=== PATIENT | male | born 2005 | race Two or more races ===

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

== ENCOUNTER 2025-01-04 11:10 | Outpatient (REF) | payer MEDICAID, SELFPAY ==
--- OUTSIDE RECORDS SUMMARY | 2024-02-12 06:30 | XMS_ITS | Continuity of Care Document ---
Author Organization Hongnida Castaneda Shawn [facility] Address [address] [place] [address] Phone Care Team Providers Care Partner Name Role Phone Phan OD, Sharon Unavailable Unavailable Allergies, Adverse Reactions, Alerts Substance Reaction Status Criticality No Known Allergies Active No Inform ation Procedures Procedure Date REFRACTION EYE EXAM & TREATMENT PREV VISIT, EST, AGE 18-39 NON BILLABLE MEDICATION NON BILLABLE MEDICATION OFFICE/OUTPATIENT VISIT, EST FITTING OF SPECTACLES Lens polycarb or equal Optical Ordering Glasses Only 3 REFRACTION EYE EXAM, NEW PATIENT OFFICE/OUTPATIENT VISIT, EST OFFICE/OUTPATIENT VISIT, EST Antigen Detect By Immunoassay Tech COVID -19 DEVELOPMENTAL TEST, GALICIA OFFICE/OUTPATIENT VISIT, NEW Advance Directives Directive Yes / No Effective Date File Name No Information Encounters Encounter Description Practice Location Reason(s) For Visit Diagnoses Date Provider Providers Copied on Encounter Everton Castaneda [facility], [address] [place] [address] 2,[address], [place], [place], [id number], [place] tel:[phone] [place] [address] Optometry blurry vision (chief complaint) Latent hyperopia of both eyes Oct-2 4 Emilie Herrera. [address] [place], [place], [id number], [place]. tel:[phone] PREV VISIT, EST, AGE 18-39 [facility], [address], [place], [place], [id number], [place] tel:[phone] [facility] [place] Well child (chief complaint) Encounter for routine history and physical examination 4 Darell Reeder. [address] [place], [place], [id number], [place]. tel:[phone] OFFICE/OUTPA TIENT VISIT, EST [facility], [address], [place], [place], [id number], [place] tel:[phone] [facility] [place] swollen fingers. (chief complaint) Acute urticaria 4 No Information [facility], [address], [place], [place], [id number], [place] tel:[phone] [place] [address] Optical No Information Nov-0 3 Kelsea Tolentino. [address] [place], [place], [id number], [place]. tel:[phone] [facility], [address], [place], [place], [id number], [place] tel:[phone] [place] 605 Optical No Information Oct-2 3 Asselta Cofield. [address] [place], [place], [id number], [place]. tel:[phone] [facility], [address], [place], [id number], [place] tel:[phone] 605 Optometry routine exam (chief complaint) blurry vision (chief complaint) Regular astigmatism of both eyesBlepharit is of upper eyelids of both eyes, unspecified type Oct-2 3 Jaswant Dickerson. [address] [place], [place], [id number], [place]. tel:[phone] OFFICE/OUTPA TIENT VISIT, [facility] Everton Castaneda [facility], [address], [place], [place], [id number], [place] tel:[phone] [facility] [place] headache (chief complaint) Frontal headacheBMI pediatric, 5th percentile to less than 85% for ageStomach ache 1 Abdelrahman Aguirre. [address] [place], [place], [id number], [place]. tel:[phone] OFFICE/OUTPA TIENT VISIT, [facility] Everton Castaneda [facility], [address], [place], [place], [id number], [place] tel:[phone] [facility] [place] Nasal congestion with rhinorrheaGen eral counseling and advice on contraceptive management 1 Abdelrahman Aguirre. [address] [place], [place], [id number], [place]. tel:[phone] OFFICE/OUTPA TIENT VISIT, [facility] Everton [facility], [address], [place], [place], [id number], [place] tel:[phone] [facility] [place] cold symptoms (chief complaint) Suspected COVID-19 virus infectionNasa l congestion with rhinorrheaOth er specified disorders of nose and nasal sinusesBMI pediatric, 5th percentile to less than 85% for age 1 Abdelrahman Aguirre. [address] [place], [place], [id number], [place]. tel:[phone] Family History Family Member Type Diagnosis Age At Onset Brother Problem attention deficit hyperactiv ity disorder Mother Problem hypertension Payers Payer name Insurance type Covered alliance party ID Authorportia frost(s) [facility] [id number] Social History Type Description Quantity Date Captured Comments Alcohol Use Details Unknown Caffeine Use Details Unknown Tobacco Use Status No Information Smoking Status No Information Sex Male Sexual Orientation Straight or heterosexual Gender Identity Male Chief Complaint And Reason For Visit From encounter dated '02/12/2024 10:30'. blurry vision (chief complaint). Description: 18 yo M presents for CEE. ARRIAGA 01/2023. Patient reports no current ocular complaints. Feels vision is clear at distance and near. Patient does not wear glasses prescribed at last exam, feels they do not help him significantly. (-) flashes, floaters, double vision Reason For Referral Reason For Referral No Information Plan Of Treatment Date Type Action Status Goal Diabetes Screening. Due on O ct due Goal Influenza vaccine. Due on Oc t due Goal Unhealthy drug use screening . Due on due Goal HPV (1st). Due on due Goal Hematocrit . Due on 024 due Goal Flouride Varnish. Due on Jan due Goal Hearing screen (10-21 yr). D ue on due Goal IAP. Due on due Goal PHQ-9. Due on du e Goal BPRS. Due on due Goal DAST. Due on due Goal CANS. Due on due Goal Document SOGI Information. D ue on due Goal APE. Due on due Goal Fluoride varnish application . Due on due Goal CANS. Due on due Goal BPRS. Due on due Goal DAST. Due on due Goal PHQ-9. Due on du e Goal IAP. Due on due Goal HPV (1st). Due on due Goal Unhealthy drug use screening . Due on due Goal Document SOGI Information. D ue on due Goal Fluoride varnish application . Due on due Goal Diabetes Screening. Due on due Goal APE. Due on due Goal Influenza vaccine. Due on due Goal Hearing screen (10-21 yr). D ue on due Goal Flouride Varnish. Due on Dec due Goal Hematocrit . Due on due Goal BPRS. Due on due Goal PHQ-9. Due on du e Goal IAP. Due on due Goal DAST. Due on due Goal CANS. Due on due Goal Fluoride varnish application . Due on due Goal HPV (1st). Due on due Goal Influenza vaccine. Due on due Goal Hearing screen (10-21 yr). D ue on due Goal Hematocrit . Due on due Goal Vision screen. Due on due Goal Tobacco Usage/Advice to Quit . Due on due Goal Well visit. Due on due Goal Flouride Varnish. Due on Apr due Goal Hearing screen (13-18 yr). D ue on due Goal BPRS. Due on due Goal DAST. Due on due Goal PHQ-9. Due on du e Goal CANS. Due on due Goal IAP. Due on due Goal HPV (1st). Due on due Goal Influenza vaccine. Due on Oc due Goal Fluoride varnish application . Due on due Goal Hearing screen (10-21 yr). D ue on due Goal Hematocrit . Due on 023 due Goal Hearing screen (13-18 yr). D ue on due Goal Tobacco Usage/Advice to Quit . Due on due Goal Well visit. Due on due Goal Vision screen. Due on due Goal Flouride Varnish. Due on Jan due Goal CANS. Due on due Goal IAP. Due on due Goal DAST. Due on due Goal BPRS. Due on due Goal PHQ-9. Due on du e Goal Influenza vaccine. Due on No due Goal Fluoride varnish application . Due on due Goal HPV (1st). Due on due Goal Hematocrit . Due on due Goal Tobacco Usage/Advice to Quit . Due on due Goal Hearing screen (13-18 yr). D ue on due Goal Vision screen. Due on due Goal Well visit. Due on due Goal Flouride Varnish. Due on Feb due Goal Hearing screen (10-21 yr). D ue on due Goal Dietary management education , guidance, and counseling completed Goal IAP. Due on due Goal CANS. Due on due Goal BPRS. Due on due Goal PHQ-9. Due on du e Goal DAST. Due on due Goal HPV (1st). Due on due Goal Fluoride varnish application . Due on due Goal Influenza vaccine. Due on due Goal Vision screen. Due on due Goal Flouride Varnish. Due on Feb due Goal Hearing screen (13-18 yr). D ue on due Goal Well visit. Due on due Goal Tobacco Usage/Advice to Quit . Due on due Goal Hematocrit . Due on due Goal Hearing screen (10-21 yr). D ue on due Goal Flouride Varnish. Due on Jan due Goal Hearing screen (13-18 yr). D ue on due Goal Vision screen. Due on due Goal Well visit. Due on 21 due Goal Tobacco Usage/Advice to Quit . Due on due Goal Hematocrit . Due on 021 due Goal Hearing screen (10-21 yr). D ue on due Goal HPV (). Due on due Goal Fluoride varnish application . Due on due Goal Influenza vaccine. Due on Oc due Goal BPRS. Due on due Goal IAP. Due on due Goal PHQ-9. Due on du e Goal DAST. Due on due Goal CANS. Due on due Goal Dietary management education , guidance, and counseling completed History Of Present Illness Encounter Date Complaint History Of Prese nt Illness blurry vision 18 yo M presents for CEE. ARRIAGA 01/2023. Patient reports no current ocular complaints. Feels vision is clear at distance and near. Patient does not wear glasses prescribed at last exam, feels they do not help him significantly. (-) flashes, floaters, double vision Well child CC: 18 YR CPELan g: EngConcerns and Questions: none PMH: denies (ADHD listed, not on meds)meds: deniesallg: NKDA/NKFAPast hospitalizations: deniesPast surgeries: deniesFHx: mat aunt w/ blindness, MGM passed from breast cancer; no DM or sudden cardiac deathROS: good appetite, F&V, lots of water, cutting back on soda. no concerns w/ sleep, regular BMs no diarrhea/constipationHEADSS assessment:- lives w/mom, 5 brothers. No smokers. - school: [employer], 11th grade. Likes school, loves art. Thinking about college.- after-school activity/hobbies: on football team- social group: good group, no bullying/drama- t/a/d/vaping: denies - tried MJA before but didnt like how it made him feel slow so he stopped -identity: pronouns (he/him), identifies as hetero, has girlfriend, sexually active, uses condoms - mood: good, no concerns HCM:- eye exam -- saw Opt, has glasses but doesnt feel the Rx is right- dentist -- outside clinic- screeners: reviewed, no concern- SOGI: entered- vaccines: need to reconcileROS:Neuro: Denies HAHEENT: Pos glasses Rx, sometimes blurry w/ small letters, no hearing concernCVS: Denies skipped beats, CP, dizziness, presyncope, syncopeResp: Denies cough, trouble breathing, SOB with exertionABD: Denies stomach pain. Reports daily BMs, no bloodGU: Denies dysuria, hematuria, no penile rash or dcSkin: Denies rashes swollen fingers. Here with swoll en fingers and itchy rash that started this morning. Pt notes he felt weak last night with assoc DOS SANTOS. + runny nose. No cough, ST. Had a ST x 4 days a week ago. Denies trouble breathing, vomiting. Denies new exposures to foods, medicines, topicals. Has not tried any treatments.Sick contacts: Friend is sickSH: THC uses, denies nicotine. SA with female partner. routine exam blurry vision >17 yo M Sandeep rai pt comes in for his 1st eye exam. He never worn glasses or CLs before. He stated that at school sometimes he has to squint his left eye to be able to see the white board at the end of the room but his near vision is ok. > Pt also reported that his eyes are usually dry when just wake up from the morning but other than that, no redness, tearing, itching, burning, double vision. > No h/o of ocular trauma or surgeries> Unremarkable medical history and medication> He is doing well in school> His aunt and uncle were born blind and it was a hereditary condition but mom was not aware of what disease it was. headache Onset: 2hours. T he severity of the problem is mild. Pain scale: 3/10. The problem has not changed. The symptoms are constant. Locations affected include bilateral frontal. Headache timing includes daytime. Symptoms are not associated with recent head trauma. Aggravating factors include head position. Symptoms are not aggravated by allergies, bright lights and noise. Relieving factors additional comments: took nothing. Pertinent negatives include dizziness, fever, nausea, neck stiffness or vomiting. Additional information: Notes runny, stuffy nose. Also notes stomach ache after eating a brownie cake for lunch. Hx of allergies but never got medication. cold symptoms Onset: 4 days ag o. The patient describes the cough as non-productive. Context: covid exposure. Symptoms are aggravated by lying down. Relieving factors include took nothing. Associated symptoms include cough, fatigue, nasal congestion and rhinorrhea. Pertinent negatives include chills, epistaxis, fever, hoarseness and sore throat. The patient does not have a history of allergies or asthma. Functional Status Date Functional Assessmen t No Information Instructions Date Instruction Additional Infor mation Impression/Plan Related to Laten t hyperopia of both eyes Impression/Plan Related to Regul ar astigmatism of both eyes Impression/Plan Related to Bleph aritis of upper eyelids of both eyes, unspecified type Dietary management e ducation, guidance, and counseling Related to BMI pediatric, 5th percentile to less than 85% for age Dietary management e ducation, guidance, and counseling Related to BMI pediatric, 5th percentile to less than 85% for age Assessments Type Assessment Date assessment Latent hyperopia of both eyes Oc impression Latent hyperopia of both eyes: H52.03.> BCVA 20/20 OD/OS/OU > patient asymptomatic Patient Care Teams Name Effective Dates (start - stop) Status Members No Information
--- OUTSIDE RECORDS SUMMARY | 2025-01-04 10:15 | XMS_ITS | Encounter Summary ---
Author Organization [employer] Address [address] [facility] [address] [place] [address] Care Team Providers Care Cloth Doubling Machine Operator Name Role Phone Padmini Rose MD Primary Care Provider [phone]- [phone] Reason for Visit * Reason Comments Follow-up Encounter Details Date Type Department Care Team ([facility] Contact Info) Description 01/04/2025 10:15 AM EDT Office Visit [facility] MEDICINE [address] [place] [address] Padmini Rose MD [address] [place] [address] Gender dysphoria (Primary Dx); Hematuria, unspecified type; Other specified health status Social History Tobacco [...] Q2 Not on file 12/21/2023 Comments Unknown Intention Date Recorded No desire to become (finding) 0 01/04/2025 Sex and Gender Information Value Date Recorded Sex Assigned at Male 10/13/2023 10:38 AM EDT Legal Sex Male 1:09 PM EDT Gender Identity Transgender Female 10/27/2023 1: 57 PM EDT Sexual Orientation Don't know 10/13/2023 10 :42 AM EDT documented as of this encounter Last Filed Vital Signs Vital Sign Reading Time Taken Comments Blood Pressure 120/70 01/04/2025 10:45 AM EDT Pulse 61 01/04/2025 10:45 AM EDT Temperature 36.9 C (98.4 F) 01/04/2025 10:45 AM EDT Respiratory Rate 20 01/04/2025 10:45 AM EDT Oxygen Saturation 99% 01/04/2025 10:45 AM EDT Inhaled Oxygen Concentration - - Weight 64.1 kg (141 lb 6.4 oz) 01/04/2025 10:45 AM EDT Height 171.5 cm (5' 7.5 ) 01/04/2025 10:45 AM ED T Body Mass Index 21.82 01/04/2025 10:45 AM EDT documented in this encounter Progress Notes * Padmini Rose MD - 01/04/2025 10:15 AM EDT Sylvia Saab is a 19 y.o. adult trans woman with past medical history of gender dysphoria and anxiety who presents to the office today here for follow-up gender dysphoria and comprehensive annual evaluation. Increased estradiol on 09/07/24 and pt has not gotten her associated labs done. Will re-order labs again today. Pt reports she will get her labs done. She came > 15 min late today. We discussed she did not get her labs done as advised and she needs to get them done to continue treatment. She has some questions about her insurance coverage and I advised her to speak with our insurance navigators. She declines vaccines today. She reports has occasional headaches, no other concerns. Social History Tobacco: denied Drugs: none Alcohol: No Sexuality: Sexually active with male partners. Suicide/Depression: The patient denies any present symptoms of depression or anxiety. Review of Systems Constitutional: Negative for chills, fatigue, fever and unexpected weight change. Respiratory: Negative for cough and shortness of breath. Cardiovascular: Negative for chest pain. Gastrointestinal: Negative for abdominal pain. Genitourinary: Negative for difficulty urinating. Musculoskeletal: Negative for back pain. Neurological: Negative for dizziness. Current Medications[1] Allergies[2] Medical History[3] Surgical History[4] Family History[5] Objective Visit Vitals BP 120/70 (BP Location: Left arm, Patient Position: Sitting, BP Cuff Size: Adult) Pulse 61 Temp 98.4 ??F (36.9 ??C) (Oral) Resp 20 Ht 5' 7.5 (1.715 m) Wt 141 lb 6.4 oz (64.1 kg) SpO2 99% BMI 21.82 kg/m?? Smoking Status Never BSA 1.75 m?? Physical Exam Constitutional: Appearance: Normal appearance. HENT: Right Ear: Tympanic membrane normal. Left Ear: Tympanic membrane normal. Nose: Nose normal. Mouth/Throat: Pharynx: Oropharynx is clear. Eyes: Extraocular Movements: Extraocular movements intact. Pupils: Pupils are equal, round, and reactive to light. Cardiovascular: Rate and Rhythm: Normal rate and regular rhythm. Heart sounds: Normal heart sounds. Pulmonary: Effort: Pulmonary effort is normal. Breath sounds: Normal breath sounds. No wheezing. Abdominal: General: Abdomen is flat. Palpations: Abdomen is soft. Tenderness: There is no abdominal tenderness. Musculoskeletal: General: Normal range of motion. Skin: General: Skin is warm and dry. Neurological: General: No focal deficit present. Mental Status: She is alert. Psychiatric: Mood and Affect: Mood normal. Behavior: Behavior normal. 19 y.o. adult annual evaluation. Assessment & Plan Gender dysphoria Reviewed risks and benefits of [...] so referred [facility]. [phone]. This will be to schedule an initial [...] will recheck labs in 6 weeks 09/07/24 -has not gotten labs done, re-ordered and encouraged to get them done 01/04/25 Hematuria, unspecified type Lab Results Component Value Date COLORURINE Yellow 09/07/2024 APPURINE Clear 09/07/2024 PH 7.0 09/07/2024 GLUCURUA Negative 09/07/2024 URBLOOD Large (3+) (A) 09/07/2024 SGUR <=1.005 09/07/2024 URPROTEIN Negative 09/07/2024 URKETONES Negative 09/07/2024 URNITRITE Negative 09/07/2024 LEUKESTUR Negative 09/07/2024 RBCURINE >20 (A) 09/07/2024 UWBC 0-5 09/07/2024 USQEPI 0-2 09/07/2024 UBACT None Seen 09/07/2024 HYALINECASTS 0-2 09/07/2024 -Normal renal ultrasound 10/07/24 Other specified health status -next comprehensive annual evaluation due after 01/04/26 -eye care none -dental home is encouraged -billy care proxy given and filed 05/25/24 Annual Evaluation -Normal growth and development. -Anticipatory guidance discussed. -Preventative care / harm reduction discussed. Follow up in about 2 months (around 03/06/2025) for televisit or in-person. I, Arabella Rubio, am serving as a scribe to document services personally performed by Dr. Diaz, based on the patient's response to questions by provider and providers statements to me. [1] Current Outpatient Medications: estradiol (Estrace) 2 MG tablet, Take 2 tabs po daily, Disp: 180 tablet, Rfl: 3 spironolactone (Aldactone) 50 MG tablet, Take 1 tablet (50 mg) by mouth Once per day., Disp: 90 tablet, Rfl: 3 [2] No Known Allergies [3] Past Medical History: Diagnosis Date Gender dysphoria 10/27/2023 Reviewed risks and benefits of feminizing hormone therapy. Informed consent given to patient to review. Discussed use of estrogen and/or anti-androgens, reversible vs irreversible side effects. Discussed impact on fertility as well as need for contraception if with a partner who is capable of getting . Reviewed need for baseline labs and regular monitoring. Reviewed expected time line [4] History reviewed. No pertinent surgical history. [5] Family History Problem Relation Name Age of Onset Diabetes Maternal Grandmother documented in this encounter Miscellaneous Notes * Assessment & Plan Note - Padmini Rose MD - 01/04/2025 10:15 AM EDT Associated Problem(s): Gender dysphoria Reviewed risks and benefits [...] so referred [facility]. [phone]. This will be to schedule an initial [...] will recheck labs in 6 weeks 09/07/24 -has not gotten labs done, re-ordered and encouraged to get them done 01/04/25 * Assessment & Plan Note - Padmini Rose MD - 01/04/2025 10:15 AM EDT Associated Problem(s): Hematuria Lab Results Component Value Date COLORURINE Yellow 09/07/2024 APPURINE Clear 09/07/2024 PH 7.0 09/07/2024 GLUCURUA Negative 09/07/2024 URBLOOD Large (3+) (A) 09/07/2024 SGUR <=1.005 09/07/2024 URPROTEIN Negative 09/07/2024 URKETONES Negative 09/07/2024 URNITRITE Negative 09/07/2024 LEUKESTUR Negative 09/07/2024 RBCURINE >20 (A) 09/07/2024 UWBC 0-5 09/07/2024 USQEPI 0-2 09/07/2024 UBACT None Seen 09/07/2024 HYALINECASTS 0-2 09/07/2024 -Normal renal ultrasound 10/07/24 * Assessment & Plan Note - Padmini Rose MD - 01/04/2025 10:15 AM EDT Associated Problem(s): Other specified health status -next comprehensive annual evaluation due after 01/04/26 -eye care none -dental home is encouraged -billy care proxy given and filed 05/25/24 documented in this encounter Plan of Treatment Upcoming Encounters Date Type Department Care Team (Late st Contact Info) Description 03/08/2025 9:30 AM EST Office Visit [facility] MED[facility]INE [address] [place] [address] Padmini Rose MD [address] [place] [address] Scheduled Orders Name Type Priority Associated Diagnoses Orde r Schedule Testosterone, Total, males (Adult), IA Lab Routine Gender dysphoria Expected: 01/04/2025, Expires: 01/04/2026 Estradiol Lab Routine Gender dysphoria Expected: 01/04/2025, Expires: 01/04/2026 documented as of this encounter Procedures Procedure Name Priority Date/Time Associated Diagnosis Comments HEPATIC FUNCTION PANEL Routine 01/04/2025 11:42 AM EDT Gender dysphoria BASIC METABOLIC PANEL Routine 01/04/2025 11:42 AM EDT Gender dysphoria documented in this encounter Results * (ABNORMAL) Basic Metabolic Panel (01/04/2025 11:42 AM EDT) Sodium 142 135 - 145 mmol/L [facility] Potassium 4.7 3.3 - 5.1 mmol/L [facility] Chloride 108 96 - 108 mmol/L [facility] Carbon Dioxide 28 22 - 29 mmol/L [facility] Anion Gap 11(L) 12 - 20 [facility] Urea Nitrogen (BUN) 12 9 - 16 mg/dL [facility] Creatinine, Serum 0.87 0.5 - 1.4 mg/dL [facility] Estimated Glomerular Filt Rate >60 [facility] Comment:Chronic Kidney Disea se: Estimated GFR < 60 mL/min/[id number] Kidney Disease: Estimated GFR < 15 mL/min/1.73m2 Glucose 88 60 - 115 mg/dL [facility] Calcium 9.9 8.4 - 10.2 mg/dL [facility] Blood Venous blood specimen / Unknown 01/04/2025 11:42 AM EDT 01/04/2025 1:16 PM EDT Padmini Rose MD LAB BLOOD ORDERABLES Final Result Performing Organization Address City/State/[facility] Co de Phone Number [facility] [address] [place] [phone] * Hepatic Function Panel (01/04/2025 11:42 AM EDT) Bilirubin, Total 0.8 0.0 - 1.0 mg/dL [facility] Bilirubin, Direct 0.3 0.0 - 0.5 mg/dL [facility] Aspartate Amino Transferase 26 5 - 37 U/L [facility] Alanine Aminotransferase 19 0 - 40 U/L [facility] Total Protein 7.6 6.5 - 8.0 g/dL [facility] Albumin Level 5.0 3.5 - 5.0 g/dL [facility] Alkaline Phosphatase 113 39 - 117 U/L [facility] Blood Venous blood specimen / Unknown 01/04/2025 11:42 AM EDT 01/04/2025 1:16 PM EDT Padmini Rose MD LAB BLOOD ORDERABLES Final Result [facility] [address] [place] [phone] documented in this encounter Visit Diagnoses Diagnosis Gender dysphoria- Primary Hematuria, unspecified type Other specified health status documented in this encounter Additional Health Concerns Assessment Noted Time PHQ-9 Depression Total Score: 1 07/06/19 25 10:01 AM EDT documented as of this encounter Care Teams Cloth Doubling Machine Operator Relationship Specialty Start Date End Date Padmini Rose MD [address] [place] [phone] PCP - General Family Medicine 10/27/23 documented as of this encounter
[2025-01-04 13:47] LABS: Alanine Aminotransferase 19 U/L (0-40); Albumin Level 5.0 g/dL (3.5-5.0); Alkaline Phosphatase 113 U/L (39-117); Anion Gap 11 (12-20); Aspartate Amino Transferase 26 U/L (5-37); Blood Urea Nitrogen 12 mg/dL (9-16); Calcium 9.9 mg/dL (8.4-10.2); Carbon Dioxide 28 mmol/L (22-29); Chloride 108 mmol/L (96-108); Estimated Glomerular Filt Rate > 60; Potassium 4.7 mmol/L (3.3-5.1); Sodium 142 mmol/L (135-145); Total Protein 7.6 g/dL (6.5-8.0)
--- OUTSIDE RECORDS SUMMARY | 2025-01-04 14:23 | XMS_ITS | Encounter Summary ---
Author Organization [employer] Address [address] [facility] [address] [place] [address] Care Team Providers Care Creative Producer Name Role Phone Padmini Rose MD Primary Care Provider [phone]- [phone] Reason for Visit * Reason Onset Date Comments CHART PREP 01/03/2025 Encounter Details Date Type Department Care Team ([facility] st Contact Info) Description 01/03/2025 Telephone [facility] MED[facility]INE [address] [place] [address] Padmini Rose MD [address] [place] [address] CHART PREP Social History Tobacco Use Types Packs/Day Years [...] encounter Miscellaneous Notes * Telephone Encounter - Steve Howard [place] - 01/03/2025 6:28 PM EDT Chart Prep Labs: not done from 09/07/24 Images: done Renal 10/07/24 Referrals: not applicable Vaccines due: Covid, Flu, Hep B, HPV, and DTAP Screenings: LMP Overdue care gaps: Oral health screening and Disability screen documented in this encounter Plan of Treatment Upcoming Encounters Date Type Department Care Team (Late st Contact Info) Description 03/08/2025 9:30 AM EST Office Visit [facility] MEDICINE [address] [place] [address] Padmini Rose MD [address] [place] [address] documented as of this encounter Visit Diagnoses Not on filedocumented in this encounter Additional Health Concerns Assessment Noted Time PHQ-9 Depression Total Score: 1 07/06/19 10:01 AM EDT documented as of this encounter Care Teams Creative Producer Relationship Specialty Start Date End Date Padmini Rose MD [address] [place] [phone] PCP - General Family Medicine 10/27/23 documented as of this encounter
--- OUTSIDE RECORDS SUMMARY | 2025-01-04 14:23 | XMS_ITS | Clinical Summary ---
Author Organization [employer] Address [address] [place] [address] Care Team Providers Care Oil Heater Installer Name Role Phone Padmini Rose MD Primary Care Provider [phone]- [phone] Allergies No known active allergies Medications * This document contains information received from the source organization and may not represent a complete record from that organization. spironolactone (Aldactone) 50 MG tabletIndication s:Gender dysphoria Take 1 tablet (50 mg) by mouth Once per day. 90 tablet 3 08/09/2024 Active estradiol (Estrace) 2 MG tabletIndication s:Gender dysphoria Take 2 tabs po daily 180 tablet 3 09/07/2024 Active Active Problems Problem Noted Date Diagnosed Date Hematuria 10/10/2024 Overview (01/04/2025): Lab Results Component Value Date COLORURINE Yellow 09/07/2024 APPURINE Clear 09/07/2024 PH 7.0 09/07/2024 GLUCURUA Negative 09/07/2024 URBLOOD Large (3+) (A) 09/07/2024 SGUR <=1.005 09/07/2024 URPROTEIN Negative 09/07/2024 URKETONES Negative 09/07/2024 URNITRITE Negative 09/07/2024 LEUKESTUR Negative 09/07/2024 RBCURINE >20 (A) 09/07/2024 UWBC 0-5 09/07/2024 USQEPI 0-2 09/07/2024 UBACT None Seen 09/07/2024 HYALINECASTS 0-2 09/07/2024 -Normal renal ultrasound 10/07/24 Assessment & Plan (01/04/2025 11:07 AM EDT): Lab Results Component Value Date COLORURINE Yellow 09/07/2024 APPURINE Clear 09/07/2024 PH 7.0 09/07/2024 GLUCURUA Negative 09/07/2024 URBLOOD Large (3+) (A) 09/07/2024 SGUR <=1.005 09/07/2024 URPROTEIN Negative 09/07/2024 URKETONES Negative 09/07/2024 URNITRITE Negative 09/07/2024 LEUKESTUR Negative 09/07/2024 RBCURINE >20 (A) 09/07/2024 UWBC 0-5 09/07/2024 USQEPI 0-2 09/07/2024 UBACT None Seen 09/07/2024 HYALINECASTS 0-2 09/07/2024 -Normal renal ultrasound 10/07/24 Anxiety 11/12/2023 Assessment & Plan (11/18/2023 9:37 [...] of the state. Gender dysphoria 10/27/2023 Overview (01/04/2025): Reviewed risks and benefits of feminizing hormone [...] so referred to the [facility] at [facility]. [phone]. This will be to schedule an initial [...] and encouraged to get them done 01/04/25 Assessment & Plan (01/04/2025 11:07 AM EDT): Reviewed risks and benefits of [...] so referred to the [facility] at [facility]. [phone]. This will be to schedule an initial [...] and encouraged to get them done 01/04/25 Assessment & Plan (09/07/2024 4:11 PM EDT): [...] so referred to the [facility] at [facility]. [phone]. This will be to schedule an initial [...] needed Other specified health status 10/27/2023 Overview (01/04/2025): -next comprehensive annual evaluation due after 01/04/26 -eye care none -dental home is encouraged -billy care proxy given and filed 05/25/24 Assessment & Plan (01/04/2025 11:07 AM EDT): -next comprehensive annual evaluation due after 01/04/26 [...] reports her grandpa raised her. He in [place] a month ago. Since then Katiana has experienced grief symptoms and inability to enjoy things she used to. Katiana just relocated from [place] and is currently living with a roommate. Reports having positive social and family support. Pt was engaged with active, reflective listening and validation of emotions. Reviewed and assessed for risk, current stressors and protective factors. Katiana will see her PCP in 02/21. clinician will provide additional support during next medical appointment. Encounters Date Type Department Care Team Description 01/04/2025 10:15 AM EDT Office Visit [facility] [address] [place] [phone] Padmini Rose MD Gender dysphoria (Primary Dx); Hematuria, unspecified type; Other specified health status 01/04/2025 Travel 01/03/2025 Telephone [facility] [address] [place] [address] Padmini Rose MD CHART PREP 10/05/2024 Telephone [facility] [address] [place] [address] Padmini Rose MD 10/04/2024 Telephone [facility] [address] [place], [place] [phone] Jessenia Vegas MA chart prep from Last 3 Months Immunizations Immunization Administration [...] Mass Index 21.82 01/04/2025 10:45 AM EDT Plan of Treatment Upcoming Encounters Date Type Department Care Team (Late st Contact Info) Description 03/08/2025 9:30 AM EST Office Visit [facility] [address] [place] [phone] Padmini Rose MD [address] [place] [phone] Health Maintenance Due Date Last Done Comments Fluoride Varnish 05/08/2006 HPV Vaccines (1 - 3-dose series) 2020 Meningococcal B Vaccine (1 of 2 - Standard) 2021 Hepatitis B Vaccines (2 of 3 - 3-dose series) 08/12/2024 07/15/2024 DTaP/Tdap/Td Vaccines (1 - Tdap) 2024 COVID-19 Vaccine (1 - season) 2024 Influenza Vaccine (#1) 2024 Hepatitis A Vaccines (2 of 2 - 2-dose series) 01/15/2025 07/15/2024 SDOH Screening 05/11/2025 05/11/2024 Alcohol/Substance Use Screening 05/25/2025 05/25/2024 Depression Screening 07/05/2025 07/05/2024, 07/06/19 25 Chlamydia and Gonorrhea Screening 09/08/2025 09/08/2024, 05/25/2024, 05/25/2024, Additional history exists Disability Screening 01/04/2026 01/04/2025 Family Planning (PISQ) 01/04/2026 01/04/2025 Tobacco Screening 01/04/2026 01/04/2025 Zoster Vaccines (1 of 2) 09/06/2055 RSV [...] Years) and At-Risk Patients (6 to 49) Years Aged Out No longer eligible based on patient's age to complete this topic RSV under 20 months Aged Out No longe r eligible based on patient's age to complete this topic Rotavirus Vaccines Aged Out No longer eligible based on patient's age to complete this topic Varicella Vaccines Discontinued Procedures Procedure Name Priority Date/Time Associated Diagnosis Comments BASIC METABOLIC PANEL Routine 01/04/2025 11:42 AM EDT Gender dysphoria HEPATIC FUNCTION PANEL Routine 01/04/2025 11:42 AM EDT Gender dysphoria US RENAL BI Routine 10/07/2024 2:43 PM EDT Hematuria, unspecified type CHLAMYDIA/N. GONORRHOEAE RNA, TMA, UROGENITAL Routine 09/08/2024 4:11 PM EDT UTI symptoms HEPATITIS C AB W/REFL TO HCV RNA, QN, PCR Routine 05/25/2024 4:38 PM EST Routine screening for STI (sexually transmitted infection) HIV 1/2 ANTIGEN/ANTIBODY, FOURTH GENERATION W/RFL Routine 05/25/2024 4:38 PM EST Routine screening for STI (sexually transmitted infection) from Last 3 Months or Most Recently Relevant to Health Maintenance Results * Hepatic Function Panel (01/04/2025 11:42 AM EDT) Bilirubin, Total 0.8 0.0 - 1.0 mg/dL [facility] Bilirubin, Direct 0.3 0.0 - 0.5 mg/dL [facility] Aspartate Amino Transferase 26 5 - 37 U/L [facility] Alanine Aminotransferase 19 0 - 40 U/L [facility] Total Protein 7.6 6.5 - 8.0 g/dL [facility] Albumin Level 5.0 3.5 - 5.0 g/dL [facility] Alkaline Phosphatase 113 39 - 117 U/L [facility] Blood Venous blood specimen / Unknown 01/04/2025 11:42 AM EDT 01/04/2025 1:16 PM EDT Padmini Rose MD LAB BLOOD ORDERABLES Final Result [facility] [address] [place] [phone] * (ABNORMAL) Basic Metabolic Panel (01/04/2025 11:42 AM EDT) Sodium 142 135 - 145 mmol/L [facility] Potassium 4.7 3.3 - 5.1 mmol/L [facility] Chloride 108 96 - 108 mmol/L [facility] Carbon Dioxide 28 22 - 29 mmol/L [facility] Anion Gap 11(L) 12 - 20 [facility] Urea Nitrogen (BUN) 12 9 - 16 mg/dL [facility] Creatinine, Serum 0.87 0.5 - 1.4 mg/dL [facility] Estimated Glomerular Filt Rate >60 [facility] Comment:Chronic Kidney Disea se: Estimated GFR < 60 mL/min/1.35p2Oblary Kidney Disease: Estimated GFR < 15 mL/min/1.73m2 Glucose 88 60 - 115 mg/dL [facility] Calcium 9.9 8.4 - 10.2 mg/dL [facility] Blood Venous blood specimen / Unknown 01/04/2025 11:42 AM EDT 01/04/2025 1:16 PM EDT us Padmini Rose MD LAB BLOOD ORDERABLES Final Result Performing Organization Address City/State/[facility] Co de Phone Number [facility] [address] [place] [phone] * US RENAL BI (10/07/2024 2:43 PM EDT) Anatomical Region Laterality Modality Abdomen Ultrasound 10/07/2024 2:43 PM EDT Narrative 10/07/2024 3:14 PM EDT [address] [address] Ultrasound Report Signed Patient: Dany Franklin MR#: [id number] : 2005 Acct:[id number] Age/Sex: 19 / M ADM Date: 10/07/24 Loc: HO.US Attending Dr: Padmini Rose MD Ordering Physician: Padmini Rose MD Date of Service: 10/07/24 Procedure(s): US renal BI Accession Number(s): [id number] cc: Padmini Rose MD EXAMINATION: Ultrasound renal bilaterally. CLINICAL INFORMATION: Hematuria. COMPARISON: No priors. TECHNIQUE: Real-time ultrasound kidneys using grayscale technique. FINDINGS: Right kidney: 10 x 4 x 5 cm. Normal echotexture. Normal renal cortical thickness. No hydronephrosis. No gross solid or cystic lesion detected. Left kidney: 10 x 5 x 4 cm. Normal echotexture. Normal renal cortical thickness. No hydronephrosis. No solid or cystic lesion detected. US/US renal BI IMPRESSION: Normal renal ultrasound. Electronically signed by: Eloy Teague MD 10/07/2024 03:11 PM EDT RP Dictated By: Eloy Zuniga MD Signed By: <Electronically signed by Eloy Bartlett MD in OV> 10/07/24 1511 DD/ 1443 TD/TT: 10/07/24 1447 Building Components Designer: Procedure Note Donotuseinterpreter, Image - 10/07/2024 [place] [id number] Ultrasound Report Signed Patient: Dany Franklin AMR#: [id number] : 2005cct:[id number] Age/Sex: Date: 10/07/24 Loc: .US Attending Dr: Padmini Rose MD Ordering Physician: Padmini Rose MD Date of Service: 10/07/24 Procedure(s): US renal BI Accession Number(s): [id number] cc: Padmini Rose MD EXAMINATION: Ultrasound renal bilaterally. CLINICAL INFORMATION: Hematuria. COMPARISON: No priors. TECHNIQUE: Real-time ultrasound kidneys using grayscale technique. FINDINGS: Right kidney: 10 x 4 x 5 cm. Normal echotexture. Normal renal cortical thickness. No hydronephrosis. No gross solid or cystic lesion detected. Left kidney: 10 x 5 x 4 cm. Normal echotexture. Normal renal cortical thickness. No hydronephrosis. No solid or cystic lesion detected. US/US renal BI IMPRESSION: Normal renal ultrasound. Electronically signed by: Eloy Teague MD 10/07/2024 03:11 PM EDT RP Dictated By: Eloy Zuniga MD Signed By: <Electronically signed by Eloy Bartlett MDin OV> 10/07/24 1511 DD/ 1443 TD/TT: 10/07/24 1447 Building Components Designer: Padmini Rose MD [facility] US PROCEDURES Final Re sult * Chlamydia/N. Gonorrhoeae RNA, TMA, Urogenitial (09/08/2024 4:11 PM EDT) CT PCR NOT DETECTED Not Detect. [facility] Comment:A not detected test result [...] psychologicalconsequences. NG PCR NOT DETECTED Not Detect. [facility] Comment:A not detected test result [...] lead to adverse medical, social or psychologicalconsequences. Urine (Urine, Random) 09/08/2024 4:11 PM EDT 09/08/2024 4:11 PM EDT Narrative [facility] - 09/08/2024 1:33 PM EDT Urine us Padmini Rose MD LAB MICROBIOLOGY - GENERAL ORDERABLES Final Result Performing Organization Address [facility] Co de Phone Number [facility] [address] [place] [phone] * Hepatitis C Antibody with Reflex to HCV, RNA, Quantitative, Real-Time PCR (05/25/2024 4:38 PM EST) Hepatitis C Antibody Nonreactive Nonreactive [facility] Comment:Antibodies to HCV no t detected; does not exclude early acuteHCV infection. Blood Venous blood specimen / Unknown 05/25/2024 4:38 PM EST 05/25/2024 6:27 PM EST Result [facility] Padmini Rose MD LAB BLOOD ORDERABLES Final Result Performing Organization Address [facility] de Phone Number [facility] [address] [place] [phone] * HIV-1/2 Antigen and Antibodies, Fourth Generation, with Reflexes (05/25/2024 4:38 PM EST) HIV AB/AG Nonreactive Nonreactive [facility] Comment:HIV-1 p24 Ag and/or HIV-1/HIV-2 Ab not detected.A test result that is nonreactive does not exclude thepossibility of exposure to or infection with HIV-1 and/orHIV-2. Nonreactive results in this assay for individualswith prior exposure to HIV-1 and/or HIV-2 may be due toantigen and antibody levels that are below the limit ofdetection of this assay.The [employer] HIV Ag/Ab Combo assay result andsupplemental assay results should be interpreted inconjunction with the patient's clinical presentation,history and other laboratory results. If the results areinconsistent with clinical evidence, additional testing issuggested to confirm the result. Blood Venous blood specimen / Unknown 05/25/2024 4:38 PM EST 05/25/2024 6:27 PM EST Result [facility] Padmini Rose MD LAB BLOOD ORDERABLES Final Result [facility] [address] [place] [phone] from Last 3 Months or Most Recently Relevant to Health Maintenance Insurance [facility] C3 Advance Directives Documents on File Type Date Recorded Patient Entry Level Assistant Manager Expl anation Advance Directives and Living Will 05/26/2024 10:22 AM Health Care Proxy Care Teams Oil Heater Installer Relationship Specialty Start Date End Date Padmini Rose MD [address] [place] [phone] PCP - General Family Medicine 10/27/23
--- OUTSIDE RECORDS SUMMARY | 2025-01-04 14:23 | XMS_ITS | Encounter Summary ---
Author Organization [employer] Address [address] [place] [address] Care Team Providers Care Junior Business Analyst Name Role Phone Padmini Rose MD Primary Care Provider [phone]- [phone] Encounter Details Date Type Department Care Team (Latest Contact Info) Description 01/04/2025 Travel Social History Tobacco Use Types Packs/Day [...] Description 03/08/2025 9:30 AM EST Office Visit [facility] [address] [place] [phone] Padmini Rose MD [address] [place] [address] documented as of this encounter Visit Diagnoses Not on filedocumented in this encounter Additional Health Concerns Assessment Noted Time PHQ-9 Depression Total Score: 1 07/06/19 25 10:01 AM EDT documented as of this encounter Care Teams Junior Business Analyst Relationship Specialty Start Date End Date Padmini Rose MD [address] [place] [address] PCP - General Family Medicine 10/27/23 documented as of this encounter
--- OUTSIDE RECORDS SUMMARY | 2025-01-04 14:23 | XMS_ITS | Encounter Summary ---
Author Organization [employer] Address [address] [place] [address] Care Team Providers Care Project Control Manager Name Role Phone Padmini Rose MD Primary Care Provider [phone]- [phone] Encounter Details Date Type Department Care Team ([facility] st Contact Info) Description 08/09/2024 Orders Only [facility] [address] [place] [address] Padmini Rose MD [address] [place] [address] Gender dysphoria Social History Tobacco Use Types [...] Description 03/08/2025 9:30 AM EST Office Visit [facility] [address] [place] [address] Padmini Rose MD [address] [place] [address] documented as of this encounter Visit Diagnoses Diagnosis Gender dysphoria documented in this encounter Additional Health Concerns Assessment Noted Time PHQ-9 Depression Total Score: 1 07/06/19 25 10:01 AM EDT documented as of this encounter Care Teams Project Control Manager Relationship Specialty Start Date End Date Padmini Rose MD [address] [place] [address] PCP - General Family Medicine 10/27/23 documented as of this encounter
--- OUTSIDE RECORDS SUMMARY | 2025-01-04 14:24 | XMS_ITS | Clinical Summary ---
Author Organization [facility] Address [address] [place] [address] [place] [phone] Phone Care Team Providers Care Casting Molder Name Role Phone Padmini Rose MD Primary Care Provi rad Social History Tobacco Use Types Packs/Day Years Used Date Smoking Tobacco: Never Assessed Education Answer Date Recorded Are you interested in more education? Not on raúl e 09/06/2024 Are you concerned about learning? Not on file 09/06/2024 No 09/06/2024 No 09/06/2024 Digital Access Answer Date Recorded No 09/06/2024 No 09/06/2024 Reliable internet access at home? Not on file 09/06/2024 Device with a working camera? Not on file Sex and Gender Information Value Date Recorded Sex Assigned at Male 09/06/2024 3:40 PM EDT Legal Sex Female 3:45 PM EDT Gender Identity Female 09/06/2024 3:40 PM EDT Sexual Orientation Not on file Plan of Treatment Upcoming Encounters Date Type Department Care Team (Late st Contact Info) Description 03/03/2025 9:00 AM EST Office Visit [facility] [address] [place] [phone] Yazan Killian MD [address] [place] [phone] Health Maintenance Due Date Last Done Comments MMR VACCINES (1 of 1 - Stand xochilt series) 2006 BMI ASSESSMENT 2008 DEVELOPMENTAL/BEHAVIORAL SCR EENING (PHQ, PSC, or SWYC) 2008 COMBINED DTaP,Tdap,Td (1 - Tdap) 2012 DEPRESSION SCREENING 2017 SMOKING Hx and SMOKELESS TOB ACCO SCREENING 2018 VARICELLA VACCINES (1 of 2 - 13+ 2-dose series) 2018 HPV VACCINES (1 - 3-dose series) 2020 CHLAMYDIA SCREENING 2021 MENINGOCOCCAL VACCINES (B) ( 1 of 2 - Standard) 2021 ADOLESCENT UNIVERSAL LIPID SCREENING 2022 HEPATITIS C SCREENING 09/06/2023 HIV ONE-TIME SCREENING (18-6 5 YEARS) 09/06/2023 HEPATITIS B VACCINES (1 of 3 - 19+ 3-dose series) 2024 INFLUENZA VACCINE (#1) 2024 COVID-19 VACCINE (1 - 2023-2 5 season) 2024 HEPATITIS A VACCINES Aged Out No long er eligible based on patient's age to complete this topic HIB VACCINES Aged Out No longer eligi ble based on patient's age to complete this topic MENINGOCOCCAL VACCINES (ACWY) Aged Out No longer eligible based on patient's age to complete this topic PNEUMOCOCCAL VACCINES (0-49 years) Aged Out No longer eligible based on patient's age to complete this topic Medical Devices Not on file Insurance [facility] NET FULL [employer] S[employer] NET FULL [facility] [employer] S[employer] NET FULL [employer] SAFETY NET FULL [facility] LIMITED [facility] SAFETY NET FULL [facility] FULL Care Teams Casting Molder Relationship Specialty Start Date End Date [place], Padmini Church MD [address] [place] [phone] PCP - General Family Medicine 09/06/24 Additional Source Comments The information contained in this document represents components of the legal health record. It is not the complete legal health record.[facility]
== END 2025-01-04 11:11 | disposition home or self-care (01) ==
LOC: HO.HHCL 11:10
PROVIDERS: PCP Family Medicine; Visit Provider Family Medicine
DX: F64.9 Gender identity disorder, unspecified (principal)
CPT/HCPCS: 36415; 80048; 80076; 82670; 84403

== ENCOUNTER 2025-03-08 16:18 | Outpatient (REF) | payer MEDICAID, SELFPAY ==
--- OUTSIDE RECORDS SUMMARY | 2025-03-08 09:30 | XMS_ITS | Encounter Summary ---
Author Organization [employer] Address [address] [place] [address] Care Team Providers Care Platen Press Operator Apprentice Name Role Phone Padmini Rose MD Primary Care Provider [phone] Yazan Killian MD Unavailable Reason for Visit * Reason Comments Follow-up Encounter Details Date Type Department Care Team ([facility] st Contact Info) Description 03/08/2025 9:30 AM EST Office Visit [facility] [address], [place] [phone] Padmini Rose MD [address] [place], [place] [phone] Gender dysphoria (Primary Dx); Hematuria, unspecified type; Other specified health status; Routine screening for STI (sexually transmitted infection); Alkaline phosphatase elevation Social History Tobacco Use Types Packs/Day Years [...] Reading Time Taken Comments Blood Pressure 110/66 03/08/2025 9:07 AM EST Pulse 66 03/08/2025 9:07 AM EST Temperature 37.2 C (98.9 F) 03/08/2025 9:07 AM EST Respiratory Rate 20 03/08/2025 9:07 AM EST Oxygen Saturation 98% 03/08/2025 9:07 AM EST Inhaled Oxygen Concentration - - Weight 65.1 kg (143 lb 9.6 oz) 03/08/2025 9:07 A M EST Height 170.8 cm (5' 7.25 ) 03/08/2025 9:07 AM ES T Body Mass Index 22.32 03/08/2025 9:07 AM EST documented in this encounter Patient Instructions * Patient Instructions* Padmini Rose MD - 03/08/2025 9:30 AM EST Care Team Padmini Rose MD PCP - General, Family Medicine [phone] Yazan Killian MD Plastic Surgery [phone] No follow-ups on file. Future Appointments Date Time Provider Department Center 03/08/2025 9:30 AM Padmini Rose MD [facility] documented in this encounter Progress Notes * Padmini Rose MD - 03/08/2025 9:30 AM EST Sylvia Saab is a 19 y.o. adult trans woman with past medical history of gender dysphoria and anxiety who presents to the office today here for follow-up gender dysphoria labs and recheck hematuria. Interim history: Last PCP visit 12/2024 for comprehensive exam Current concerns: Increased estradiol on 09/07/24 but she did not roll picker medication and pt has not gotten her associated labs done. Will re-order labs again today. Pt reports she will take her medications daily and get her labs done in one month. She had isolated episode of gross hematuria 08/2024 that resolved. We will recheck today. She declines all vaccines and understands risks. She requested therapy letter be emailed to [facility] plastics. This was done 03/08/25 and she was handed a copy of her therapist letter for proceeding with breast augmentation. Social History Tobacco: denied Drugs: none Alcohol: [...] History[4] Family History[5] Objective Visit Vitals BP 110/66 (BP Location: Left arm, Patient Position: Sitting, BP Cuff Size: Adult) Pulse 66 Temp 98.9 ??F (37.2 ??C) (Oral) Resp 20 Ht 5' 7.25 (1.708 m) Wt 143 lb 9.6 oz (65.1 kg) SpO2 98% BMI 22.32 kg/m?? Smoking Status Never BSA 1.76 m?? Physical Exam Constitutional: Appearance: Normal appearance. [...] annual evaluation. Assessment & Plan Gender dysphoria Katiana meets DSM-5 criteria for gender dysphoria. They have expressed a persistent and well-documented experience of incongruence between their gender identity and assigned sex at . Katiana has hasdemonstrated capacity to make informed decisions regarding hormone therapy. They are aware of the potential risks, benefits, and irreversible effects of treatment. Katiana has no contraindications identified for initiating hormone therapy. -education reviewed: we reviewed our informed consent that includes expected physical changes, timeline, and irreversible effects; we reviewed fertility preservation options; patient declined/pursuedsperm/egg banking -discussed need for contraception if with a partner who is capable of getting -reinforced importance of medication adherence and follow-up -reviewed need for baseline labs and regular monitoring; expected time lines in terms of desired effects -baseline labs ordered -estradiol 2mg restarted 05/25/24 (goal estradiol 110-220), increased to 6mg daily 01/11/25 -restart spironolactone 50 mg po daily 05/25/24, increased to BID 01/11/25 -wants breast surgery, referred to plastic surgery 05/25/24 but referral letter needed [facility] [phone]. This will be to schedule an initial appointment with a therapist. She should tell the initial clinician that she wants to be with [facility] and they will refer her to Rama Beckman who will get her an appointment. -referred to Plastic surgery for breast augmentation 07/15/24 Orders: Hepatic Function Panel; Future Testosterone, Total, males (Adult), IA; Future Estradiol; Future Basic Metabolic Panel; Future Testosterone, Total, males (Adult), IA; Future Testosterone, Free (Dialysis) And Total, MS; Future estradiol (Estrace) 2 MG tablet; Take 3 tabs (6mg) po daily spironolactone (Aldactone) 50 MG tablet; Take 1 tablet (50 mg) by mouth 2 times daily. Hematuria, unspecified type Lab Results Component Value Date COLORURINE Yellow 09/07/2024 APPURINE Clear 09/07/2024 PH 7.0 09/07/2024 GLUCURUA Negative 09/07/2024 URBLOOD Large (3+) (A) 09/07/2024 SGUR <=1.005 09/07/2024 URPROTEIN Negative 09/07/2024 URKETONES Negative 09/07/2024 URNITRITE Negative 09/07/2024 LEUKESTUR Negative 09/07/2024 RBCURINE >20 (A) 09/07/2024 UWBC 0-5 09/07/2024 USQEPI 0-2 09/07/2024 UBACT None Seen 09/07/2024 HYALINECASTS 0-2 09/07/2024 -She had isolated episode of gross hematuria 08/2024 that resolved. We will recheck today. -Normal renal ultrasound 10/07/24, repeat labs Orders: Urinalysis, Complete, with Reflex to Culture; Future Chlamydia/N. Gonorrhoeae, PCR, Urine Other specified health status -next comprehensive annual evaluation due after 01/04/26 -eye care none -dental home is encouraged -billy care proxy filed 05/25/24 Routine screening for STI (sexually transmitted infection) Orders: HIV-1/2 Antigen and Antibodies, Fourth Generation, with Reflexes; Future Hepatitis C Antibody with Reflex to HCV, RNA, Quantitative, Real-Time PCR; Future Syphilis Screen; Future Alkaline phosphatase elevation Orders: Vitamin D, 25-Hydroxy, Total, Immunoassay; Future Follow up in about 3 months (around 06/08/2025) for follow up gender labs. This note was drafted using Ambient (AI) technology. The patient/patient's guardian has been informed and has consented to the use of this technology: Yes [1] Current Outpatient Medications: estradiol (Estrace) 2 MG tablet, Take 3 tabs (6mg) po daily, Disp: 90 tablet, Rfl: 11 spironolactone (Aldactone) 50 MG tablet, Take 1 tablet (50 mg) by mouth 2 times daily., Disp: 60 tablet, Rfl: 11 [2] No Known Allergies [3] Past Medical [...] Plan Note - Padmini Rose MD - 03/08/2025 9:30 AM EST Associated Problem(s): Gender dysphoria Katiana meets DSM-5 criteria for gender dysphoria. They have expressed a persistent and well-documented experience of incongruence between their gender identity and assigned sex at . Katiana has hasdemonstrated capacity to make informed decisions regarding hormone therapy. They are aware of the potential risks, benefits, and irreversible effects of treatment. Katiana has no contraindications identified for initiating hormone therapy. -education reviewed: we reviewed our informed consent that includes expected physical changes, timeline, and irreversible effects; we reviewed fertility preservation options; patient declined/pursuedsperm/egg banking -discussed need for contraception if with a partner who is capable of getting -reinforced importance of medication adherence and follow-up -reviewed need for baseline labs and regular monitoring; expected time lines in terms of desired effects -baseline labs ordered -estradiol 2mg restarted 05/25/24 (goal estradiol 110-220), increased to 6mg daily 01/11/25 -restart spironolactone 50 mg po daily 05/25/24, increased to BID 01/11/25 -wants breast surgery, referred to plastic surgery 05/25/24 but referral letter needed so [facility]. [phone]. This will be to schedule an initial appointment with a therapist. She should tell the initial clinician that she wants to be with [facility] and they will refer her to Rama Beckman who will get her an appointment. -referred to Plastic surgery for breast augmentation 07/15/24 Orders: Hepatic Function Panel; Future Testosterone, Total, males (Adult), IA; Future Estradiol; Future Basic Metabolic Panel; Future Testosterone, Total, males (Adult), IA; Future Testosterone, Free (Dialysis) And Total, MS; Future estradiol (Estrace) 2 MG tablet; Take 3 tabs (6mg) po daily spironolactone (Aldactone) 50 MG tablet; Take 1 tablet (50 mg) by mouth 2 times daily. * Assessment & Plan Note - Padmini Rose MD - 03/08/2025 9:30 AM EST Associated Problem(s): Hematuria Lab Results Component Value Date COLORURINE Yellow 09/07/2024 APPURINE Clear 09/07/2024 PH 7.0 09/07/2024 GLUCURUA Negative 09/07/2024 URBLOOD Large (3+) (A) 09/07/2024 SGUR <=1.005 09/07/2024 URPROTEIN Negative 09/07/2024 URKETONES Negative 09/07/2024 URNITRITE Negative 09/07/2024 LEUKESTUR Negative 09/07/2024 RBCURINE >20 (A) 09/07/2024 UWBC 0-5 09/07/2024 USQEPI 0-2 09/07/2024 UBACT None Seen 09/07/2024 HYALINECASTS 0-2 09/07/2024 -She had isolated episode of gross hematuria 08/2024 that resolved. We will recheck today. -Normal renal ultrasound 10/07/24, repeat labs Orders: Urinalysis, Complete, with Reflex to Culture; Future Chlamydia/N. Gonorrhoeae, PCR, Urine * Assessment & Plan Note - Padmini Rose MD - 03/08/2025 9:30 AM EST Associated Problem(s): Other specified health status -next comprehensive annual evaluation due after 01/04/26 -eye care none -dental home is encouraged -billy care proxy filed 05/25/24 * Assessment & Plan Note - Padmini Rose MD - 03/08/2025 9:30 AM EST Associated Problem(s): Alkaline phosphatase elevation Orders: Vitamin D, 25-Hydroxy, Total, Immunoassay; Future documented in this encounter Plan of Treatment Scheduled Orders Name Type Priority Associated Diagnoses Orde r Schedule Hepatic Function Panel Lab Routine Gender dysphoria Expected: 03/07/2025 (Approximate), Expires: 03/07/2026 Testosterone, Total, males (Adult), IA Lab Routine Gender dysphoria Expected: 03/07/2025, Expires: 03/07/2026 Estradiol Lab Routine Gender dysphoria Expected: 03/07/2025, Expires: 03/07/2026 Basic Metabolic Panel Lab Routine Gender dysphoria Expected: 03/07/2025 (Approximate), Expires: 03/07/2026 HIV-1/2 Antigen and Antibodies, Fourth Generation, with Reflexes Lab Routine Routine screening for STI (sexually transmitted infection) Expected: 03/07/2025 (Approximate), Expires: 03/07/2026 Hepatitis C Antibody with Reflex to HCV, RNA, Quantitative, Real-Time PCR Lab Routine Routine screening for STI (sexually transmitted infection) Expected: 03/07/2025 (Approximate), Expires: 03/07/2026 Syphilis Screen Lab Routine Routine screening for STI (sexually transmitted infection) Expected: 03/07/2025 (Approximate), Expires: 03/07/2026 Testosterone, Total, males (Adult), IA Lab Routine Gender dysphoria Expected: 03/07/2025, Expires: 03/07/2026 Testosterone, Free (Dialysis) And Total, MS Lab Routine Gender dysphoria Expected: 03/07/2025 (Approximate), Expires: 03/07/2026 Vitamin D, 25-Hydroxy, Total, Immunoassay Lab Routine Alkaline phosphatase elevation Expected: 03/08/2025 (Approximate), Expires: 03/08/2026 documented as of this encounter Procedures Procedure Name Priority Date/Time Associated Diagnosis Comments CHLAMYDIA/TRICHOMON /NEISSERIA GONORRHOEAE, PCR, URINE Routine 03/08/2025 12:00 AM EST Hematuria, unspecified type URINALYSIS, COMPLETE, WITH REFLEX TO CULTURE Routine 03/08/2025 12:00 AM EST Hematuria, unspecified type documented in this encounter Results * Chlamydia/N. Gonorrhoeae, PCR, Urine (03/08/2025 12:00 AM EST) CT PCR, Urine NOT DETECTED Not Detect. [facility] Comment:A not detected test result does not exclude the possibilityof infection because test results can be affected byimproper specimen collection, concurrent antibiotic therapy,or the number of organisms in the specimen which may bebelow the sensitivity of the test. As with many diagnostictests, results from the Xpert CT/NG assay should beinterpreted in conjunction with other laboratory andclinical data available to the clinician.The Xpert CT/NG assay should not be used for the evaluationof suspected sexual abuse or for other medico-legalindications. Additional testing is recommended in anycircumstance when false positive or false negative resultscould lead to adverse medical, social or psychologicalconsequences. NG PCR, Urine NOT DETECTED Not Detect. [facility] Comment:A not detected test result does not exclude the possibilityof infection because test results can be affected byimproper specimen collection, concurrent antibiotic therapy,or the number of organisms in the specimen which may bebelow the sensitivity of the test. As with many diagnostictests, results from the Xpert CT/NG assay should beinterpreted in conjunction with other laboratory andclinical data available to the clinician.The Xpert CT/NG assay should not be used for the evaluationof suspected sexual abuse or for other medico-legalindications. Additional testing is recommended in anycircumstance when false positive or false negative resultscould lead to adverse medical, social or psychologicalconsequences. Urine (Urine, Random) 03/08/2025 03/08/2025 4:20 PM EST Padmini Rose MD LAB URINE ORDERABLES Final Result [facility] [address] [place] [phone] * (ABNORMAL) Urinalysis, Complete, with Reflex to Culture (03/08/2025 12:00 AM EST) Color Urine Yellow [facility] Appearance Urine Turbid [facility] PH 6.0 5.0 - 9.0 [facility] Glucose Urine UA Negative Negative mg/dL [facility] Urine Blood Small (1+)(A) Negative [facility] Specific [place] - Urine 1.025 1.005 - 1.025 [facility] Urine Protein Negative Neg-Trace mg/dL [facility] Urine Ketones Negative Negative mg/dL [facility] Nitrite Urine Negative Negative [facility] Leukocyte Esterase Urine Negative Negative [facility] RBC Urine 0-2 0 - 2 /HPF [facility] Urine WBC 0-5 0 - 5 /HPF [facility] Urine Squamous Epithelial Cell 0-2 0 - 2 /HPF [facility] CALCIUM OXALATE CRYSTAL, UR Present [facility] Urine Bacteria None Seen None Seen [facility] Hyaline Casts, Urine 0-2 0 - 2 /LPF [facility] Urine 03/08/2025 03/08/2025 4:2 2 PM EST Narrative [facility] - 03/08/2025 5:09 PM EST Urine, Clean Catch us Padmini Rose MD LAB URINE ORDERABLES Final Result Performing Organization Address City/State/[facility] [[email or web address]] Co de Phone Number [facility] [address] [place] [phone] documented in this encounter Visit Diagnoses Diagnosis Gender dysphoria- Primary Hematuria, unspecified type Other specified health status Routine screening for STI (sexually transmitted infection) Screening examination for venereal disease Alkaline phosphatase elevation Other nonspecific abnormal serum enzyme levels documented in this encounter Additional Health Concerns Assessment Noted Time PHQ-9 Depression Total Score: 1 07/06/19 25 10:01 AM EDT documented as of this encounter Care Teams Platen Press Operator Apprentice Relationship Specialty Start Date End Date Padmini Rose MD [address] [place] [phone] PCP - General Family Medicine 10/27/23 Yazan Killian MD [address] [place] [address], [address] [place] [address] Plastic Surgery 03/08/25 documented as of this encounter
[2025-03-08 16:46] LABS: Appearance Urine Turbid; Glucose Urine UA Negative (Negative); PH 6.0 (5.0-9.0); Specific Gravity - Urine 1.025 (1.005-1.025); UMIC TRIGGER UACC YES
[2025-03-08 18:10] LABS: CT PCR Urine NOT DETECTED (Not Detect.); NG PCR Urine NOT DETECTED (Not Detect.)
--- OUTSIDE RECORDS SUMMARY | 2025-03-09 04:48 | XMS_ITS | Encounter Summary ---
Author Organization [facility] Address [address] [facility] [address] [place] [phone] Phone Care Team Providers Care Neurosurgical Nurse Name Role Phone Padmini Rose MD Primary Care Provi rad Reason for Visit * Reason Onset Date Comments Breast Augmentation 03/06/2025 Encounter Details Date Type Department Care Team (Late st Contact Info) Description 03/06/2025 Telephone [facility] Plastic Surgery [address] [place] [phone] Yazan Killian MD [address] [place] [phone] [email or web address] Breast Augmentation Social History Tobacco Use Types Packs/Day Years Used Date Smoking Tobacco: Never Smokeless Tobacco: Never Alcohol Use Standard Drinks/Week Comments Not Currently 0 (1 standard drink = 0.6 oz pur e alcohol) Education Answer Date Recorded Are you interested [...] PM EDT Sexual Orientation Not on file documented as of this encounter Progress Notes * Arnaldo Paula - 03/06/2025 1:42 PM EST Attempted to call pt with help from datapower consultant - pt did not answer & phone rang without ever going to voicemail. Could not leave a message. Letter mailed out advising we are looking for therapy letter prior to being able to schedule surgery. Waiting is consultant back. documented in this encounter Plan of Treatment Upcoming Encounters Date Type Department Care Team (Late st Contact Info) Description 04/20/2039 Hospital Encounter OR Admitting Dept - Virtual Department [address] [place] [phone] Yazan Killian MD [address] [place] [address], [address] [place] [phone] 04/20/2039 Procedure Pass [place] Admitting Dept - Virtual Department [address] [place] [phone] Scheduled Procedures Name Priority Associated Diagnoses Date/Ti me AUGMENTATION BREAST BILATERAL gender dysphoria documented as of this encounter Visit Diagnoses Not on filedocumented in this encounter Care Teams Neurosurgical Nurse Relationship Specialty Start Date End Date Padmini Rose MD [address] [place] [phone] PCP - General Family Medicine 09/06/24 documented as of this encounter Additional Source Comments The information contained in this document represents components of the legal health record. It is not the complete legal health record.[facility]
--- OUTSIDE RECORDS SUMMARY | 2025-03-09 04:48 | XMS_ITS | Clinical Summary ---
Author Organization [employer] Address [address] [place] [address] 7 [place] [address] Care Team Providers Care Fitness Floor Attendant Name Role Phone Padmini Rose MD Primary Care Provider [phone]- [phone] Yazan Killian MD Unavailable Allergies No known active allergies Medications * This document contains information received from the source organization and may not represent a complete record from that organization. estradiol (Estrace) 2 MG tabletIndicati ons:Gender dysphoria Take 3 tabs (6mg) po daily 90 tablet 11 03/08/2025 10:36 AM EST 5 Active spironolactone (Aldactone) 50 MG tabletIndicati ons:Gender dysphoria Take 1 tablet (50 mg) by mouth 2 times daily. 60 tablet 11 03/08/2025 10:36 AM EST 5 Active estradiol (Estrace) 2 MG tabletIndicati ons:Gender dysphoria Take 3 tabs (6mg) po daily 90 tablet 11 5 025 Discontinued(Re order (will not trigger notification to Pharmacy)) spironolactone (Aldactone) 50 MG tabletIndicati ons:Gender dysphoria Take 1 tablet (50 mg) by mouth 2 times daily. 60 tablet 5 025 Discontinued(Re order (will not trigger notification to Pharmacy)) Active Problems Problem Noted Date Diagnosed Date Alkaline phosphatase elevation 03/08/2025 Assessment & Plan (03/08/2025 9:29 AM EST): Orders: Vitamin D, 25-Hydroxy, Total, Immunoassay; Future Hematuria 10/10/2024 Overview (03/07/2025): Lab Results Component Value Date COLORURINE Yellow 09/07/2024 APPURINE Clear 09/07/2024 PH 7.0 09/07/2024 GLUCURUA Negative 09/07/2024 URBLOOD Large (3+) (A) 09/07/2024 SGUR <=1.005 09/07/2024 URPROTEIN Negative 09/07/2024 URKETONES Negative 09/07/2024 URNITRITE Negative 09/07/2024 LEUKESTUR Negative 09/07/2024 RBCURINE >20 (A) 09/07/2024 UWBC 0-5 09/07/2024 USQEPI 0-2 09/07/2024 UBACT None Seen 09/07/2024 HYALINECASTS 0-2 09/07/2024 -Normal renal ultrasound 10/07/24, repeat labs Assessment & Plan (03/08/2025 9:29 AM EST): Lab Results Component Value Date COLORURINE Yellow [...] to Culture; Future Chlamydia/N. Gonorrhoeae, PCR, Urine Assessment & Plan (01/04/2025 11:07 AM EDT): [...] and anxiety symptoms. Katiana is moving to [place] this week and feels overwhelmed. We discussed [...] of the state. Gender dysphoria 10/27/2023 Overview (03/07/2025): Katiana meets DSM-5 criteria for gender dysphoria. They have expressed a persistent and well-documented experience of incongruence between their gender identity and assigned sex at . Katiana has has demonstrated capacity to make informed decisions regarding hormone therapy. They are aware of the potential risks, benefits, and irreversible effects of treatment. Katiana has no contraindications identified for initiating hormone therapy. -education reviewed: we reviewed our informed consent that includes expected physical changes, timeline, and irreversible effects; we reviewed fertility preservation options; patient declined/pursued sperm/egg banking -discussed need for contraception if with [...] so referred to the [facility]ment [facility] at [facility]. [phone]. This will be to schedule an initial appointment with a therapist. She should tell the initial clinician that she wants to be with the empowerment project and they will refer her to Rama Beckman who will get her an appointment. -referred to Plastic surgery for breast augmentation 07/15/24 Assessment & Plan (03/08/2025 9:29 AM EST): Katiana meets DSM-5 criteria for gender dysphoria. They have expressed a persistent and well-documented experience of incongruence between their gender identity and assigned sex at . Katiana has has demonstrated capacity to make informed decisions regarding hormone therapy. They are aware of the potential risks, benefits, and irreversible effects of treatment. Katiana has no contraindications identified for initiating hormone therapy. -education reviewed: we reviewed our informed consent that includes expected physical changes, timeline, and irreversible effects; we reviewed fertility preservation options; patient declined/pursued sperm/egg banking -discussed need for contraception if with [...] so referred to the [facility]ment [facility] at [facility]. [phone]. This will be to schedule an initial [...] (50 mg) by mouth 2 times daily. Assessment & Plan (01/04/2025 11:07 AM EDT): [...] so referred to the [facility] at [facility]. [phone]. This will be to schedule an initial [...] so referred to the [facility] at [facility]. [phone]. This will be to schedule an initial [...] needed Other specified health status 10/27/2023 Overview (03/07/2025): -next comprehensive annual evaluation due after 01/04/26 -eye care none -dental home is encouraged -billy care proxy filed 05/25/24 Assessment & Plan (03/08/2025 9:29 AM EST): -next comprehensive annual evaluation due after 01/04/26 -eye care none -dental home is encouraged -billy care proxy filed 05/25/24 Assessment & Plan (01/04/2025 11:07 [...] reports her grandpa raised her. He in [place] a month ago. Since then Katiana has experienced grief symptoms and inability to enjoy things she used to. Katiana just relocated from [place] and is currently living with a roommate. Reports having positive social and family support. Pt was engaged with active, reflective listening and validation of emotions. Reviewed and assessed for risk, current stressors and protective factors. Katiana will see her PCP in 02/21. clinician will provide additional support during next medical appointment. Encounters Date Type Department Care Team Description 03/08/2025 9:30 AM EST Office Visit [address] [address] Padmini Rose MD Gender dysphoria (Primary Dx); Hematuria, unspecified type; Other specified health status; Routine screening for STI (sexually transmitted infection); Alkaline phosphatase elevation 03/08/[address] [address] Padmini Rose MD 03/08/2025 Travel 03/07/2025 Telephone [facility] [address] [place] [address] Padmini Rose MD Lab Orders 03/07/[address] [address] Padmini Rose MD chart prep 01/11/2025 Results Follow-Up [address] [address] Padmini Rose MD Hepatic Function Panel, Testosterone, Total, males (Adult), IA, Estradiol, Basic Metabolic Panel 01/11/2025 Orders Only [address] [address] Padmini Rose MD Gender dysphoria 01/04/2025 10:15 AM EDT Office Visit [address] [address] Padmini Rose MD Gender dysphoria (Primary Dx); Hematuria, unspecified type; Other specified health status 01/04/2025 Travel 01/03/[address] [address] Padmini Rose MD CHART PREP from Last 3 Months Immunizations Immunization Administration [...] Mass Index 22.32 03/08/2025 9:07 AM EST Plan of Treatment Health Maintenance Due Date Last Done Comments SDOH Screening 05/11/2025 05/11/2024 Alcohol/Substance Use Screening 05/25/2025 05/25/2024 Depression Screening 07/05/2025 07/05/2024, 07/06/19 Influenza Vaccine (#1) 2025 Postp oned from 12/19/2024 (Patient Refused) Disability Screening 01/04/2026 01/04/2025 Family Planning (PISQ) 01/04/2026 01/04/2025 COVID-19 Vaccine ( - season) 2026 Postponed from 12/19/2024 (Patient Refused) Chlamydia and Gonorrhea Screening 03/08/2026 03/08/2025, 09/08/2024, 05/25/2024, Additional history exists DTaP/Tdap/Td Vaccines (1 - Tdap) 03/08/2026 Postponed from 2024 (Patient Refused) HPV Vaccines (1 - 3-dose series) 03/08/2026 Postponed from 2020 (Patient Refused) Hepatitis A Vaccines (2 of 2 - 2-dose series) 03/08/2026 07/15/2024 Postponed from 01/15/2025 (Patient Refused) Hepatitis B Vaccines (2 of 3 - 3-dose series) 03/08/2026 07/15/2024 Postponed from 08/12/2024 (Patient Refused) Meningococcal B Vaccine (1 of 2 - Standard) 03/08/2026 Postponed from 2021 (Patient Refused) Tobacco Screening 03/08/2026 03/08/2025 Zoster Vaccines (1 of 2) 09/06/2055 RSV Patients and Patients Aged 60 years or older (1 - 1-dose 75+ series) 2080 HIV Screening Completed 05/25/2024, 10/27/2023 Hepatitis C Screening Completed 05/25/2024, 024 MMR Vaccines Completed 07/15/2024 Fluoride Varnish Discontinued HIB Vaccines Aged Out No longer eligi [...] Procedure Name Priority Date/Time Associated Diagnosis Comments URINALYSIS, COMPLETE, WITH REFLEX TO CULTURE Routine 03/08/2025 12:00 AM EST Hematuria, unspecified type CHLAMYDIA/TRICHOMON /NEISSERIA GONORRHOEAE, PCR, URINE Routine 03/08/2025 12:00 AM EST Hematuria, unspecified type BASIC METABOLIC PANEL Routine 01/04/2025 11:42 AM EDT Gender dysphoria ESTRADIOL Routine 01/04/2025 11:42 AM EDT Gender dysphoria TESTOSTERONE, TOTAL, MALES (ADULT), IA Routine 01/04/2025 11:42 AM EDT Gender dysphoria HEPATIC FUNCTION PANEL Routine 01/04/2025 11:42 AM EDT Gender dysphoria HEPATITIS C AB W/REFL TO HCV RNA, QN, PCR Routine 05/25/2024 4:38 PM EST Routine screening for STI (sexually transmitted infection) HIV 1/2 ANTIGEN/ANTIBODY, FOURTH GENERATION W/RFL Routine 05/25/2024 4:38 PM EST Routine screening for STI (sexually transmitted infection) from Last 3 Months or Most Recently Relevant to Health Maintenance Results * Chlamydia/N. Gonorrhoeae, PCR, Urine (03/08/2025 12:00 AM EST) CT PCR, Urine NOT DETECTED Not Detect. [facility] Comment:A not detected test result [...] NG PCR, Urine NOT DETECTED Not Detect. [facility] Comment:A not detected test result [...] Rose MD LAB URINE ORDERABLES Final Result [facility] [address] [place] [phone] * (ABNORMAL) Urinalysis, Complete, with Reflex to Culture (03/08/2025 12:00 AM EST) Color Urine Yellow [facility] Appearance Urine Turbid [facility] PH 6.0 5.0 - 9.0 [facility] Glucose Urine UA Negative Negative mg/dL [facility] Urine Blood Small (1+)(A) Negative [facility] Specific Morrison - Urine 1.025 1.005 - 1.025 [facility] Urine Protein Negative Neg-Trace mg/dL [facility] Urine Ketones Negative Negative mg/dL [facility] Nitrite Urine Negative Negative [facility] Leukocyte Esterase Urine Negative Negative [facility] RBC Urine 0-2 0 - 2 /HPF [facility] Urine WBC 0-5 0 - 5 /HPF [facility] Urine Squamous Epithelial Cell 0-2 0 - 2 /HPF [facility] CALCIUM OXALATE CRYSTAL, UR Present [facility] Urine Bacteria None Seen None Seen [facility] Hyaline Casts, Urine 0-2 0 - 2 /LPF [facility] Urine 03/08/2025 03/08/2025 4:2 2 PM EST Narrative [facility] - 03/08/2025 5:09 PM EST Urine, Clean Catch Padmini Rose MD LAB URINE ORDERABLES Final Result Performing Organization Address [facility]/ZIP Co de Phone Number [facility] [address] [place] [phone] * (ABNORMAL) Estradiol (01/04/2025 11:42 AM EDT) Estradiol Ultra Sensitive 37(A) < OR = 29 pg/mL [facility] Comment:This test was develo ped and its analytical performancecharacteristics have been determined by [employer].It has not been cleared or approved by the FDA. This assayhas been validated pursuant to the CLIA regulations and isused for clinical purposes.THIS TEST WAS PERFORMED AT:[employer]/[facility] [id number] [facility] [place] [address]YWSTGJAJA MADRIGAL MD,PHD,TRI Blood Venous blood specimen / Unknown 01/04/2025 11:42 AM EDT 01/04/2025 1:16 PM EDT us Padmini Rose MD LAB BLOOD ORDERABLES Final Result Performing Organization Address [facility]/ZIP Co de Phone Number [facility] [address] [place] [phone] * Testosterone, Total, males (Adult), IA (01/04/2025 11:42 AM EDT) Testosterone, Total 991 250 - 1100 ng/dL [facility] Comment:For additional infor manuelzaheer, please refer [email or web address].[employer],/faq/[email or web address](This link is being provided for informational/educational purposes only.)This test was developed and its analytical performancecharacteristics have been determined by [employer] [place], [place]. It hasnot been cleared or approved by the U.S. Food and DrugAdministration. This assay has been validated pursuantto the CLIA regulations and is used for clinicalpurposes.THIS TEST WAS PERFORMED AT:[employer]/[facility] [place] [address]YEOOVJCENRICO DOE MD,PHD Blood Venous blood specimen / Unknown 01/04/2025 11:42 AM EDT 01/04/2025 1:16 PM EDT Padmini Rose MD LAB BLOOD ORDERABLES Final Result [facility] [address] [place] [phone] * Hepatic Function Panel (01/04/2025 11:42 AM EDT) Bilirubin, Total 0.8 0.0 - 1.0 mg/dL [facility] Bilirubin, Direct 0.3 0.0 - 0.5 mg/dL [facility] Aspartate Amino Transferase 26 5 - 37 U/L [facility] Alanine Aminotransferase 19 0 - 40 U/L [facility] Total Protein 7.6 6.5 - 8.0 g/dL [facility] Albumin Level 5.0 3.5 - 5.0 g/dL [facility] Alkaline Phosphatase 113 39 - 117 U/L [facility] Blood Venous blood specimen / Unknown 01/04/2025 11:42 AM EDT 01/04/2025 1:16 PM EDT Padmini Rose MD LAB BLOOD ORDERABLES Final Result Performing Organization Address [facility]/ZIP Co de Phone Number [facility] [address] [place] [phone] * (ABNORMAL) Basic Metabolic Panel (01/04/2025 11:42 AM EDT) Sodium 142 135 - 145 mmol/L [facility] Potassium 4.7 3.3 - 5.1 mmol/L [facility] Chloride 108 96 - 108 mmol/L [facility] Carbon Dioxide 28 22 - 29 mmol/L [facility] Anion Gap 11(L) 12 - 20 [facility] Urea Nitrogen (BUN) 12 9 - 16 mg/dL [facility] Creatinine, Serum 0.87 0.5 - 1.4 mg/dL [facility] Estimated Glomerular Filt Rate >60 [facility] Comment:Chronic Kidney Disea se: Estimated GFR < 60 mL/min/1.27r3Iubhat Kidney Disease: Estimated GFR < 15 mL/min/1.73m2 Glucose 88 60 - 115 mg/dL [facility] Calcium 9.9 8.4 - 10.2 mg/dL [facility] Blood Venous blood specimen / Unknown 01/04/2025 11:42 AM EDT 01/04/2025 1:16 PM EDT Padmini Rose MD LAB BLOOD ORDERABLES Final Result Performing Organization Address City/[facility]/ZIP Co de Phone Number [facility] [address] [place] [phone] * Hepatitis C Antibody with Reflex to HCV, RNA, Quantitative, Real-Time PCR (05/25/2024 4:38 PM EST) Hepatitis C Antibody Nonreactive Nonreactive [facility] Comment:Antibodies to HCV no t detected; does not exclude early acuteHCV infection. Blood Venous blood specimen / Unknown 05/25/2024 4:38 PM EST 05/25/2024 6:27 PM EST Padmini Rose MD LAB BLOOD ORDERABLES Final Result Performing Organization Address [facility]/ZIP Co de Phone Number [facility] [address] [place] [phone] * HIV-1/2 Antigen and Antibodies, Fourth Generation, with Reflexes (05/25/2024 4:38 PM EST) [facility] HIV AB/AG Nonreactive Nonreactive [facility] Comment:HIV-1 p24 Ag and/or HIV-1/HIV-2 Ab not detected.A test result that is nonreactive does not exclude thepossibility of exposure to or infection with HIV-1 and/orHIV-2. Nonreactive results in this assay for individualswith prior exposure to HIV-1 and/or HIV-2 may be due toantigen and antibody levels that are below the limit ofdetection of this assay.The [employer] HIV Ag/Ab Combo assay result andsupplemental assay results should be interpreted inconjunction with the patient's clinical presentation,history and other laboratory results. If the results areinconsistent with clinical evidence, additional testing issuggested to confirm the result. Blood Venous blood specimen / Unknown 05/25/2024 4:38 PM EST 05/25/2024 6:27 PM EST Padmini Rose MD LAB BLOOD ORDERABLES Final Result Performing Organization Address City/[facility]/ZIP Co de Phone Number [facility] [address] [place] [phone] from Last 3 Months or Most Recently Relevant to Health Maintenance [place] [place] [address] C3 Advance Directives Documents on File Type Date Recorded Patient Incident Response Consultant Expl anation Advance Directives and Living Will 05/26/2024 10:22 AM Health Care Proxy Care Teams Fitness Floor Attendant Relationship Specialty Start Date End Date Padmini Rose MD [address] [place] [phone] PCP - General Family Medicine 10/27/23 Yazan Killian MD [address] [place] [address], [facility] [address] [place] [address] Plastic Surgery 03/08/25
--- OUTSIDE RECORDS SUMMARY | 2025-03-09 04:48 | XMS_ITS | Clinical Summary ---
Author Organization [facility] Address [address] [place] [address] [place] [phone] Phone Care Team Providers Care Med Surg Rn Name Role Phone Padmini Rose MD Primary Care Provi rad Allergies No known active allergies Medications estradioL (ESTRACE) 2 MG tablet Take 3 tabs (6mg) po daily 01/11/2025 Active Encounters Date Type Department Care Team Description 03/08/2025 Telephone [facility] Plastic Surgery [address] [place] [address] Yazan Killian MD 03/06/2025 Telephone [facility] Plastic Surgery [address] [place] [address] Yazan Killian MD Breast Augmentation 03/03/2025 9:00 AM EST Office Visit [facility] Plastic Surgery [address] [place] [address] Yazan Killian MD Miranda-Leon, [place] Gender dysphoria in adult (Primary Dx) from Last 3 Months Family History Relation Status Comments Father Unknown Mother Alive Social History Tobacco Use Types Packs/Day Years Used Date Smoking Tobacco: Never Smokeless Tobacco: Never Tobacco Cessation:Counseling Given: Not Answered Alcohol Use Standard Drinks/Week Comments Not Currently [...] PM EDT Sexual Orientation Not on file Last Filed Vital Signs Vital Sign Reading Time Taken Comments Blood Pressure 110/56 03/03/2025 9:17 AM EST Pulse 62 03/03/2025 9:17 AM EST Temperature - - Respiratory Rate - - Oxygen Saturation - - Inhaled Oxygen Concentration - - Weight 64.9 kg (143 lb) 03/03/2025 9:17 AM EST Height 171.5 cm (5' 7.5 ) 03/03/2025 9:17 AM EST Body Mass Index 22.07 03/03/2025 9:17 AM EST Plan of Treatment Upcoming Encounters Date Type Department Care Team (Late st Contact Info) Description 04/20/2039 Hospital Encounter OR Admitting Dept - Virtual Department [address] [place] [phone] Yazan Killian MD [address] [place] [address] [phone] [email or web address] 04/20/2039 Procedure Pass OR Admitting Dept - Virtual Department [address] [place] [phone] Scheduled Procedures Name Priority Associated Diagnoses Date/Ti me AUGMENTATION BREAST BILATERAL gender dysphoria Health Maintenance Due Date Last Done Comments DEVELOPMENTAL/BEHAVIORAL SCR EENING (PHQ, PSC, or SWYC) 2008 COMBINED DTaP,Tdap,Td (1 - Tdap) 2012 DEPRESSION SCREENING 2017 VARICELLA VACCINES (1 of 2 - 13+ [...] VACCINE (#1) 2024 COVID-19 VACCINE (1 - 2024-2 6 season) 2024 BMI ASSESSMENT 03/03/2026 03/03/2025 SMOKING Hx and SMOKELESS TOB ACCO SCREENING 03/03/2026 03/03/2025 MMR VACCINES Completed 07/15/2024 HEPATITIS A VACCINES Aged Out No long [...] topic Medical Devices Not on file Insurance HEALTH SAFETY NET FULL [facility] C3 ACO HEALTH SAFETY NET FULL Member Subscriber Plan / Payer (Ef fective 2024-) Name:Katiana Franklin Relation to Subscriber:Self Name:Katiana Franklin Payer ID:Not on file Group ID:Not on file Type:Medicaid Address: [address] C3 ACO HEALTH SAFETY NET FULL Member Subscriber Plan / Payer (Ef fective 2024-Present) Name:Kataina Franklin Relation to Subscriber:Self Name:Katiana Franklin Payer ID:Not on file Group ID:Not on file Type:Medicaid Address: [address] C3 [employer] HEALTH SAFETY NET FULL Member Subscriber Plan / Payer (Ef fective 2024-Present) Name:Noemi, Maite Relation to Subscriber:Self Name:Katiana Franklin Payer ID:Not on file Group ID:Not on file Type:Medicaid Address: [address] C3 [employer] HEALTH SAFETY NET FULL Member Subscriber Plan / Payer (Ef fective 2024-Present) Name:Katiana Franklin Relation to Subscriber:Self Name:Katiana Franklin Payer ID:Not on file Group ID:Not on file Type:Medicaid Address: [address] C3 ACO HEALTH SAFETY NET FULL [facility] / [facility] C3 ACO Care Teams Med Surg Rn Relationship Specialty Start Date End Date [place], Padmini Church MD [address] [place] [phone] PCP - General Family Medicine 09/06/24 Additional Source Comments The information contained in this document represents components of the legal health record. It is not the complete legal health record.[facility]
--- OUTSIDE RECORDS SUMMARY | 2025-03-09 04:48 | XMS_ITS | Encounter Summary ---
Author Organization [employer] Address [address] [place] [address] [address] [place] [address] Care Team Providers Care Set Off Press Operator Name Role Phone Padmini Rose MD Primary Care Provider [phone] Yazan Killian MD Unavailable Encounter Details Date Type Department Care Team ([facility] st Contact Info) Description 03/08/2025 Telephone [facility] [address] [place], [place] [phone] Padmini Rose MD [address] [place], [place] [phone] Social History Tobacco Use Types Packs/Day Years [...] as of this encounter Plan of Treatment Not on file documented as of this encounter Visit Diagnoses Not on filedocumented in this encounter Additional Health Concerns Assessment Noted Time PHQ-9 Depression Total Score: 1 07/06/19 25 10:01 AM EDT documented as of this encounter Care Teams Set Off Press Operator Relationship Specialty Start Date End Date Padmini Rose MD [address] [place] [phone] PCP - General Family Medicine 10/27/23 Yazan Killian MD [address] [place] [address], [address] [address] Plastic Surgery 03/08/25 documented as of this encounter
--- OUTSIDE RECORDS SUMMARY | 2025-03-09 04:48 | XMS_ITS | Encounter Summary ---
Author Organization [employer] Address [address] [place] [address] Care Team Providers Care Sail Maker Name Role Phone Padmini Rose MD Primary Care Provider +1- [phone] Reason for Visit * Reason Onset Date Comments chart prep 03/07/2025 Encounter Details Date Type Department Care Team ([facility] Contact Info) Description 03/07/2025 Telephone [facility] [address] [place], [place] [phone] Padmini Rose MD [address] [place], [place] [phone] chart prep Social History Tobacco Use Types Packs/Day Years [...] encounter Miscellaneous Notes * Telephone Encounter - Kathe Gomez [place] - 03/07/2025 9:13 AM EST Chart Prep Labs: not done Images: done Screenings: Not Applicable Vaccines due: Covid Due, Tdap Due, Hep A Due, Hep B Due, Flu Due, MCV4 Due, and HPV Referrals: Completed Overdue care gaps: Fluoride documented in this encounter Plan of Treatment Not on file documented as of this encounter Visit Diagnoses Not on filedocumented in this encounter Additional Health Concerns Assessment Noted Time PHQ-9 Depression Total Score: 1 07/06/19 25 10:01 AM EDT documented as of this encounter Care Teams Sail Maker Relationship Specialty Start Date End Date Padmini Rose MD [address] [place] [address] PCP - General Family Medicine 10/27/23 documented as of this encounter
--- OUTSIDE RECORDS SUMMARY | 2025-03-09 04:48 | XMS_ITS | Encounter Summary ---
Author Organization [employer] Address [address] [place] [address] 7 [place] [address] Care Team Providers Care Filling Mixer Name Role Phone Padmini Rose MD Primary Care Provider +1- [phone] Yazan Killian MD Unavailable Encounter Details Date Type Department Care Team ([facility] st Contact Info) Description 08/09/2024 Orders Only [facility] [address] [place], [place] [phone] Padmini Rose MD [address] [place] [address] Gender dysphoria Social History Tobacco Use Types [...] documented as of this encounter Care Teams Filling Mixer Relationship Specialty Start Date End Date Padmini Rose MD [address] [place] [phone] PCP - General Family Medicine 10/27/23 Yazan Killian MD [address] [place] [id number] Plastic Surgery 03/08/25 documented as of this encounter
--- OUTSIDE RECORDS SUMMARY | 2025-03-09 04:48 | XMS_ITS | Encounter Summary ---
Author Organization [facility] Address [address] [place] [address] Phone Care Team Providers Care Package Liner Name Role Phone Padmini Rose MD Primary Care Provi rad Encounter Details Date Type Department Care Team (Late st Contact Info) Description 03/08/2025 Telephone [facility] Plastic Surgery [address] [place] [phone] Yazan Killian MD [address] [place] [address] [email or web address] Social History Tobacco Use Types Packs/Day Years [...] as of this encounter Progress Notes * Erasmo Krishnamurthy - 03/08/2025 11:03 AM EST Patient called in and I called her back with the japanese interpreter and her phone just rang and rang. Briquetter Operator tried twice. documented in this encounter Plan of Treatment Upcoming Encounters Date Type Department Care Team (Late st Contact Info) Description 04/20/2039 Hospital Encounter OR Admitting Dept - Virtual Department [address] [place] [phone] Yazan Killian MD [address] [place] [address], [address] [address] [email or web address] 04/20/2039 Procedure Pass OR Admitting Dept - [facility] Department [address] [place] [phone] Scheduled Procedures Name Priority Associated Diagnoses Date/Ti me AUGMENTATION BREAST BILATERAL gender dysphoria documented as of this encounter Visit Diagnoses Not on filedocumented in this encounter Care Teams Package Liner Relationship Specialty Start Date End Date Padmini Rose MD [address] [place] [phone] PCP - General Family Medicine 09/06/24 documented as of this encounter Additional Source Comments The information contained in this document represents components of the legal health record. It is not the complete legal health record.[facility]
--- OUTSIDE RECORDS SUMMARY | 2025-03-09 04:48 | XMS_ITS | Encounter Summary ---
Author Organization [employer] Address [address] [place] [address] 7 [place] [address] Care Team Providers Care Printing Film Stripper Name Role Phone Padmini Rose MD Primary Care Provider +1- [phone] Reason for Visit * Reason Onset Date Comments Lab Orders 03/07/2025 Encounter Details Date Type Department Care Team ([facility] st Contact Info) Description 03/07/2025 Telephone [facility] [address] [place], [place] [phone] Padmini Rose MD [address] [place] [address] Lab Orders Social History Tobacco Use Types Packs/Day Years [...] encounter Miscellaneous Notes * Telephone Encounter - Carlita Choe RN - 03/07/2025 1:19 PM EST Called pt via [employer] [phone]. Advised her of outstanding labs and per PCP, ideally these are completed today. Pt states she cannot go today. Advised her to get them done before/after appointment tomorrow.Pt verbalized understanding, no further questions. * Telephone Encounter - Padmini Rose MD - 03/07/2025 12:05 PM EST Please ask pt to get her labs today and she is due for follow up labs tomorrow and has not gotten them done yet. Thank you. documented in this encounter Plan of Treatment Not on file documented as of this encounter Visit Diagnoses Not on filedocumented in this encounter Additional Health Concerns Assessment Noted Time PHQ-9 Depression Total Score: 1 07/06/19 25 10:01 AM EDT documented as of this encounter Care Teams Printing Film Stripper Relationship Specialty Start Date End Date Padmini Rose MD [address] [place] [phone] PCP - General Family Medicine 10/27/23 documented as of this encounter
--- OUTSIDE RECORDS SUMMARY | 2025-03-09 04:48 | XMS_ITS | Encounter Summary ---
Author Organization [employer] Address [address] [place] [address] 7 [place] [address] Care Team Providers Care Vinyl Top Installer Name Role Phone Padmini Rose MD Primary Care Provider +1- [phone] Yazan Killian MD Unavailable Encounter Details Date Type Department Care Team (Latest Contact Info) Description 03/08/2025 Travel Social History Tobacco Use Types Packs/Day [...] documented as of this encounter Care Teams Vinyl Top Installer Relationship Specialty Start Date End Date Padmini Rose MD [address] [place] [phone] PCP - General Family Medicine 10/27/23 Yazan Killian MD [address] [place] [address], [address] [address] Plastic Surgery 03/08/25 documented as of this encounter
== END 2025-03-08 16:19 | disposition home or self-care (01) ==
LOC: HO.HHCLNP 16:18
PROVIDERS: Visit Provider Family Medicine
DX: Z20.2 Contact with and (suspected) exposure to infections with a predominantly sexual mode of transmission (principal); R31.9 Hematuria, unspecified
CPT/HCPCS: 81001; 87491; 87591